=== PATIENT | female | born 1975 | race Hispanic/Latino ===

== ENCOUNTER 2021-09-10 23:47 | Emergency (ER) | payer BC, OTHER ==
[~2021-09-10] VITALS: Ht 154.9 cm; Wt 70.3 kg
[~2021-09-10 23:47] MED LIST: AMLO-257 PO; ASPI-1005 PO; FISH1CAP50 PO; PARO10TA71 PO; PARO40TA72 PO
[2021-09-11 00:21] LABS: BILIRUBIN,URINE Negative (NEGATIVE); COLOR,URINE Yellow (YELLOW); GLUCOSE, URINE (UA) Negative (NEGATIVE); KETONES,URINE >=160 mg/dL (NEGATIVE); LEUKOCYTE ESTERASE ,URINE Large (NEGATIVE); NITRATE,URINE Negative (NEGATIVE); OCCULT BLOOD,URINE Moderate (NEGATIVE); PH,URINE 5.5 (5.0-8.0); PROTEIN,URINE POS 2+ mg/dL (NEGATIVE)
[2021-09-11 00:23] LABS: APPEARANCE,URINE SLIGHTLY CLOUDY (CLEAR)
[2021-09-11 00:48] LABS: BACTERIA,URINE Moderate /HPF (None Seen); MUCUS,URINE Few LPF (None Seen); WBC,URINE 51-100 /HPF (0-1)
[2021-09-11 00:58] LABS: BASOPHILS % (AUTO) 0.2 % (0.0-5.0); LYMPHOCYTES % (AUTO) 3.7 % (21.0-51.0); MEAN CORPUSCULAR HEMOGLOBIN 24.2 pg (27.0-33.0); MEAN CORPUSCULAR VOLUME 75.6 fL (79-99); MONOCYTES % (AUTO) 6.1 % (3.0-13.0); NEUTROPHILS % (AUTO) 89.3 % (40.0-77.0); PLATELET COUNT (AUTO) 382 K/uL (130-400); RED BLOOD CELL COUNT(AUTO) 5.29 MIL/uL (4.00-5.50); RED CELL DISTRIBUTION WIDTH 16.9 % (11.0-15.5); WHITE BLOOD COUNT (AUTO) 17.4 K/uL (4.8-10.8)
[2021-09-11] MEDS ORDERED: PHENAZOPYRIDINE HCL 200 MG TABLET PO ONE (01:00)
[2021-09-11] MEDS ORDERED: CEFTRIAXONE 1G VIAL IVP ONE (01:00)
[2021-09-11 01:01] LABS: ALANINE AMINOTRANSFERASE 40 U/L (12-78); ALBUMIN 3.9 g/dL (3.5-5.0); ASPARTATE AMINOTRANSFERASE 27 U/L (10-37); BILIRUBIN,TOTAL 0.9 mg/dL (0.2-1.0); CARBON DIOXIDE 23 mmol/L (21-32); CHLORIDE 93 mmol/L (101-111); CREATININE 0.7 mg/dL (0.5-1.5); GLOMERULAR FILTR. RATE CALC 97 mL/min (>60); GLUCOSE,RANDOM 145 mg/dL (70-105); SODIUM SERUM 131 mmol/L (136-145); UREA NITROGEN, BLOOD 10 mg/dL (7-18)
[2021-09-11 01:03] LABS: LIPASE < 50 U/L (114-286); POTASSIUM 2.9 mmol/L (3.5-5.1)
[2021-09-11 01:42] LABS: PLATELET MORPHOLOGY LARGE PLTS PRESENT
[2021-09-11] MEDS ORDERED: ONDANSETRON 4MG INJ IVP ONE (02:00)
[2021-09-11 03:23] VITALS: BP 121/56
[2021-09-11] MEDS ORDERED: PHEN-847 PO (03:27)
[2021-09-11] MEDS ORDERED: CEPH500B PO (03:27)
== END 2021-09-11 03:45 | disposition home or self-care (01) ==
LOC: EDH 23:47
DX: N39.0 Urinary tract infection, site not specified (principal); I10 Essential (primary) hypertension; E11.9 Type 2 diabetes mellitus without complications; E78.00 Pure hypercholesterolemia, unspecified; F41.9 Anxiety disorder, unspecified; Z88.1 Allergy status to other antibiotic agents; Z79.82 Long term (current) use of aspirin; Z79.899 Other long term (current) drug therapy
CPT/HCPCS: 36415; 80053; 81001; 83690; 85025; 87077; 87088; 87186; 96374; 96375; 99284; J0696; J2405

== ENCOUNTER 2023-12-03 02:03 | Emergency (ER) | payer BC ==
[~2023-12-03] VITALS: Ht 154.9 cm; Wt 64.9 kg
[~2023-12-03 02:03] MED LIST changes: +CEPH500B PO; +PHEN-847 PO
[2023-12-03 02:27] LABS: APPEARANCE,URINE CLEAR (CLEAR); BILIRUBIN,URINE 0.5 mg/dL (NEGATIVE); COLOR,URINE DARK-YELLOW (YELLOW); GLUCOSE, URINE (UA) NEGATIVE (NEGATIVE); KETONES,URINE NEGATIVE (NEGATIVE); LEUKOCYTE ESTERASE ,URINE NEGATIVE Leu/uL (NEGATIVE); NITRATE,URINE 1+ (NEGATIVE); OCCULT BLOOD,URINE SMALL (NEGATIVE); PROTEIN,URINE NEGATIVE (NEGATIVE)
[2023-12-03 02:28] LABS: ADD UA MICROSCOPIC YES
[2023-12-03 02:31] LABS: HCG,QUALITATIVE URINE NEGATIVE (NEGATIVE)
[2023-12-03 02:37] LABS: BACTERIA,URINE FEW /HPF (None Seen); SQUAMOUS EPITHELIAL CELL,UR RARE /HPF (0-2); WBC,URINE 0-1 /HPF (0-1)
[2023-12-03 02:42] LABS: BASOPHILS # (AUTO) 0.06 K/uL (0.00-0.20); BASOPHILS % (AUTO) 0.8 % (0.0-5.0); EOSINOPHILS # (AUTO) 0.46 K/uL (0.00-0.70); EOSINOPHILS % (AUTO) 6.2 % (0.0-8.0); HEMATOCRIT 30.6 % (36-48); IMMATURE GRANULOCYTE ABSOLUTE 0.02 K/uL (0-1); LYMPHOCYTES # (AUTO) 2.4 K/uL (1.0-4.8); LYMPHOCYTES % (AUTO) 32.2 % (21.0-51.0); MEAN CORPUSCULAR HEMOGLOBIN 20.2 pg (27.0-33.0); MEAN CORPUSCULAR HGB CONC 29.1 g/dL (32.0-36.0); MEAN CORPUSCULAR VOLUME 69.4 fL (79-99); MONOCYTES # (AUTO) 0.5 K/uL (0.1-1.0); MONOCYTES % (AUTO) 6.6 % (3.0-13.0); NEUTROPHILS % (AUTO) 53.9 % (40.0-77.0); PLATELET COUNT (AUTO) 400 K/uL (130-400); RED BLOOD CELL COUNT(AUTO) 4.41 MIL/uL (4.00-5.50); RED CELL DISTRIBUTION WIDTH 16.3 % (11.0-15.5); WHITE BLOOD COUNT (AUTO) 7.5 K/uL (4.8-10.8)
[2023-12-03] MEDS: 0.9%NACL 1000ML 1,000 ML IV ONE (02:54)
[2023-12-03] MEDS: KETOROLAC 30MG VIAL (30MG/ML) IVP ONE (02:55)
[2023-12-03 02:57] LABS: CREATININE 0.5 mg/dL (0.5-1.0); POTASSIUM 3.3 mmol/L (3.5-5.1)
[2023-12-03 03:02] LABS: ALBUMIN 3.7 g/dL (3.5-5.0); BILIRUBIN,TOTAL 0.2 mg/dL (0.2-1.0); TOTAL PROTEIN, SERUM 7.5 g/dL (6.0-8.3)
[2023-12-03] MEDS: POTASSIUM BICARB/CIT AC 25 MEQ TABLET.EFF PO ONE (04:10)
[2023-12-03] MEDS ORDERED: CEPH500B PO (04:17)
[2023-12-03 04:27] VITALS: BP 123/65; PULSE 63; RESP 18; O2SAT 99
== END 2023-12-03 04:28 | disposition home or self-care (01) ==
LOC: EDH 02:03
DX: N39.0 Urinary tract infection, site not specified (principal); E87.6 Hypokalemia; R10.9 Unspecified abdominal pain; I10 Essential (primary) hypertension; E78.00 Pure hypercholesterolemia, unspecified; E11.9 Type 2 diabetes mellitus without complications; F41.9 Anxiety disorder, unspecified; Z88.8 Allergy status to other drugs, medicaments and biological substances; Z88.1 Allergy status to other antibiotic agents; Z79.899 Other long term (current) drug therapy
CPT/HCPCS: 99284; 74176; 96374; 84484; 80053; 85025; 87088; 81001; 81025; 36415; 93005; J7030; J1885